=== PATIENT | female | born 1985 | race Caucasian/White ===

== ENCOUNTER 2019-09-21 12:09 | Emergency (ER) | payer MEDICAID, OTHER ==
[~2019-09-21] VITALS: Ht 154.9 cm; Wt 57.0 kg
[~2019-09-21 12:09] MED LIST: AZIT-63 PO; CYCL-394 PO; HYDR-3565 PO; HYDR1TAB PO; IBUP-812 PO; NAPR-232 PO; NAPR375T5 PO; NO HOME MEDS; PRED20TA PO; PROM25TA14 PO
[2019-09-21 12:29] VITALS: BP 134/65
== END 2019-09-21 14:54 | disposition home or self-care (01) ==
LOC: ER 12:10
DX: S93.402A Sprain of unspecified ligament of left ankle, initial encounter (principal); M25.572 Pain in left ankle and joints of left foot; M25.472 Effusion, left ankle; G43.909 Migraine, unspecified, not intractable, without status migrainosus; K21.9 Gastro-esophageal reflux disease without esophagitis; Z98.890 Other specified postprocedural states; Z88.0 Allergy status to penicillin; Z88.5 Allergy status to narcotic agent; Z88.8 Allergy status to other drugs, medicaments and biological substances; Z79.2 Long term (current) use of antibiotics; Z79.899 Other long term (current) drug therapy; X58.XXXA Exposure to other specified factors, initial encounter; Y93.89 Activity, other specified; Y92.89 Other specified places as the place of occurrence of the external cause; Y99.8 Other external cause status
CPT/HCPCS: 73610; 99284

== ENCOUNTER 2020-03-07 00:08 | Emergency (ER) | payer MEDICAID, OTHER ==
[~2020-03-07] VITALS: Ht 152.4 cm; Wt 57.7 kg
[2020-03-07 00:13] VITALS: BP 124/86
--- NOTE | 2020-03-07 00:28 | NUR ---
EMANI TORRES LEVI CELL [phone], CALLING FOR UPDATE. HE REPORTS HE IS AT THEIR HOME WITH THEIR CHILDREN (AGES 14,9, 3 YRS OLD). PT HAS JUST ARRIVED VIA EMS, I TOLD HIM TO CHECK BACK IN AN HOUR AND THAT I WILL PASS HIS INFO TO PRIMARY RN.
[2020-03-07] MEDS ORDERED: LORazepam 1 MG tablet PO ONE (00:30)
== END 2020-03-07 00:50 | disposition home or self-care (01) ==
LOC: ER 00:09
DX: R07.89 Other chest pain (principal); F41.9 Anxiety disorder, unspecified; G43.909 Migraine, unspecified, not intractable, without status migrainosus; K21.9 Gastro-esophageal reflux disease without esophagitis; Z98.890 Other specified postprocedural states; Z88.0 Allergy status to penicillin; Z88.5 Allergy status to narcotic agent; Z88.8 Allergy status to other drugs, medicaments and biological substances; Z79.2 Long term (current) use of antibiotics; Z79.899 Other long term (current) drug therapy
CPT/HCPCS: 93005; 99283

== ENCOUNTER 2020-08-09 09:40 | Emergency (ER) | payer MEDICAID ==
[~2020-08-09] VITALS: Ht 154.9 cm; Wt 59.3 kg
[2020-08-09 10:35] LABS: CLARITY,URINE CLOUDY (Clear); COLOR,URINE YELLOW (Yellow); GLUCOSE, URINE NEGATIVE (Neg); KETONES,URINE NEGATIVE (Neg); LEUKOCYTE ESTERASE ,URINE LARGE (Neg); NITRITES, URINE NEGATIVE (Neg); OCCULT BLOOD,URINE LARGE (Neg); PROTEIN,URINE 100 mg/dl (Neg); UA COLLECTION TYPE CLN CATCH MIDSTREAM
[2020-08-09 10:36] LABS: URINE HCG NEGATIVE (NEG)
[2020-08-09 10:43] LABS: BASOPHILS % (AUTO) 0.3 % (0-1); EOSINOPHILS % (AUTO) 0.3 % (0-6); HEMATOCRIT 43.4 % (35.0-45.0); HEMOGLOBIN 15.1 g/dl (12.0-16.0); LYMPHOCYTES # (AUTO) 1.8 X10'3 (1.1-4.8); LYMPHOCYTES % (AUTO) 15.1 % (21-51); MEAN CORPUSCULAR HGB CONC 34.8 g/dL (33.0-36.5); MEAN CORPUSCULAR VOLUME 100.3 FL (78-98); MEAN PLATELET VOLUME 8.7 FL (7.4-10.4); MONOCYTES # (AUTO) 1.7 X10'3 (0-0.9); MONOCYTES % (AUTO) 13.9 % (2-12); NEUTROPHILS # (AUTO) 8.4 X10'3 (1.8-7.7); NEUTROPHILS % (AUTO) 70.4 % (42-75); PLATELET COUNT 319 X10'3 (140-440); RED BLOOD COUNT 4.32 X10'6 (4.20-5.60); RED CELL DISTRIBUTION WIDTH 12.8 % (11.5-14.5)
[2020-08-09 10:47] LABS: HCG SERUM QL NEGATIVE
[2020-08-09 10:48] LABS: SQUAMOUS EPITHELIAL CELL,UR MANY /LPF (FEW); TRANSITIONAL EPI CELLS,URINE FEW /HPF; WBC,URINE TNTC /HPF (0-4)
[2020-08-09 10:50] LABS: BACTERIA,URINE 2+ /HPF (Neg)
[2020-08-09 10:52] LABS: ALANINE AMINOTRANSFERASE 133 U/L (12-78); ALBUMIN 3.8 G/DL (3.4-5.0); ALBUMIN/GLOBULIN RATIO 0.8 (1.1-1.5); ALKALINE PHOSPHATASE 72 IU/L (46-116); ANION GAP 10 (8-16); ASPARTATE AMINO TRANSFERASE 58 U/L (10-37); BILIRUBIN,TOTAL 1.3 MG/DL (0.1-1.0); BLOOD UREA NITROGEN 6 MG/DL (7-18); BUN/CREATININE RATIO 7.3 (6.6-38.0); CALCIUM 9.3 MG/DL (8.5-10.1); CHLORIDE 95 MMOL/L (99-107); CREATININE 0.82 MG/DL (0.40-0.90); GLUCOSE 125 MG/DL (70-104); LIPASE 116 U/L (73-393); POTASSIUM 3.8 MMOL/L (3.5-5.1); SODIUM 132 MMOL/L (135-145); TOTAL CARBON DIOXIDE 27.3 MMOL/L (24-32); TOTAL PROTEIN 8.5 G/DL (6.4-8.2); eGFR 80 ML/MIN
[2020-08-09] MEDS ORDERED: ketorolac tromethamine 15mg/ml inj. IV ONE (12:05)
[2020-08-09] MEDS ORDERED: CefTRIAXone/D5W-Rocephin 1gm 50 ML IV ONE (12:05)
[2020-08-09] MEDS ORDERED: normal saline 1000ML IV soln IVB ONE (12:05)
[2020-08-09 13:25] VITALS: BP 99/59
--- NOTE | 2020-08-09 14:14 | NUR ---
PATIENT UP TO RESTROOM AT THIS TIME, NO SIGNS OF DISTRESS NOTED, GAIT STEADY AND BALANCED.
[2020-08-09] MEDS ORDERED: HYDR-3965 PO (15:12)
[2020-08-09] MEDS ORDERED: CEPH-585 PO (15:12)
== END 2020-08-09 15:16 | disposition home or self-care (01) ==
LOC: ER 09:40
DX: N10 Acute pyelonephritis (principal); G43.909 Migraine, unspecified, not intractable, without status migrainosus; K21.9 Gastro-esophageal reflux disease without esophagitis; Z88.0 Allergy status to penicillin; Z88.8 Allergy status to other drugs, medicaments and biological substances; Z79.2 Long term (current) use of antibiotics; Z79.899 Other long term (current) drug therapy
CPT/HCPCS: 36415; 80053; 81001; 81025; 83690; 84703; 85025; 96365; 96375; 99284; J0696; J1885; J7030

== ENCOUNTER 2021-11-29 09:52 | Emergency (ER) | payer MEDICAID ==
[~2021-11-29] VITALS: Ht 154.9 cm; Wt 60.0 kg
[~2021-11-29 09:52] MED LIST changes: -AZIT-63 PO; +AZIT-83 PO
[2021-11-29 09:56] VITALS: BP 118/74
[2021-11-29] MEDS ORDERED: ketorolac trometh. 30mg/ml inj. IM ONE (12:30)
== END 2021-11-29 13:01 | disposition home or self-care (01) ==
LOC: ER 09:53
DX: R07.89 Other chest pain (principal); K21.9 Gastro-esophageal reflux disease without esophagitis; G43.909 Migraine, unspecified, not intractable, without status migrainosus; F17.200 Nicotine dependence, unspecified, uncomplicated; Z88.8 Allergy status to other drugs, medicaments and biological substances; Z79.899 Other long term (current) drug therapy; Z88.5 Allergy status to narcotic agent
CPT/HCPCS: 71045; 96372; 99283; J1885